=== PATIENT | female | born 1975 | race Caucasian/White ===

== ENCOUNTER → 2019-12-18 08:24 | Outpatient (CLI) | payer OTHER, SELFPAY ==
[2019-12-19 07:48] LABS: COVID19 Sendout Not Detected (Not Detect)
== END ==
PROVIDERS: Visit Provider Physician Assistant
DX: Z11.59 Encounter for screening for other viral diseases (principal)
CPT/HCPCS: 87635

== ENCOUNTER 2019-12-21 08:46 | Day surgery (SDC) | payer OTHER, SELFPAY ==
[2019-12-21] VITALS (7 sets, daily range): BP systolic 98–133; BP diastolic 62–84; PULSE 68–85; RESP 11–20; TEMP 36.3–37; O2SAT 95–100; BMI 25.2
[2019-12-21] MEDS: LACTATED RINGERS 1,000 ML 200 ML IV (09:12)
--- NOTE | 2019-12-21 09:28 | PM.HP.1 ---
History of Present Illness History of Present Illness Date Patient Seen: 12/21/19 Time Patient Seen: 09:29 Chief complaint: SDC Narrative: The patient is a woman who has been having intermittent bleeding for some time. It is getting worse however sometimes lasting over a day. It is a small amount of blood. She now has known hemorrhoids. She has no family history of colon cancer. Patient History Medical History Chicken pox (Resolved ~1983) Hemorrhoids (Acute 1989) Rectal bleeding (Acute 02/2019) Surgical History History of section (Resolved) Family & Social History Family History Grandfather Stroke Grandmother Cancer Social History: household members spouse Tobacco & Substance use: Smoking Status Never smoker alcohol intake current alcohol intake frequency holiday/special occasion Substance Use Type does not use Meds Home Medications and Allergies Home Medications Medication Instructions Recorded Confirmed Type evlpqhl-kopwqxjcdnaba-jvmngcmg 250 1 tab PO Q4-6H PRN 07/11/19 12/21/19 History mg-250 mg-65 mg tablet ibuprofen 800 mg tablet 800 mg PO DAILY PRN tab 07/11/19 12/21/19 History Allergies Allergy/AdvReac Type Severity Reaction Status Date / Time No Known Drug Allergies Allergy Verified 12/21/19 09:05 Review of Systems Review of Systems Narrative: History of thrombosed external hemorrhoids when ROS: Yes All systems reviewed with the patient and are negative except as otherwise documented Exam Vital Signs (past 8 hours): - 12/21/19 09:06 Temperature 98.6 F Pulse Rate 79 Respiratory Rate 16 Blood Pressure 133/84 Pulse Oximetry 100 Oxygen Delivery Method Room Air Narrative Exam Narrative: Pleasant cooperative patient no apparent distress. Lungs are clear to auscultation. No rales or rhonchi. Heart regular rate and rhythm no murmur gallop. Abdomen is soft nontender without mass. No obvious hernias. Patient is alert and oriented x3. Assessment & Plan Assessment & Plan narrative: The patient for a screening colonoscopy. I have discussed the procedure with them. Risks of bleeding, perforation which would necessitate major operation, failure to find remove all lesions, the potential tattoo were all discussed. All questions were answered. They wished to proceed. I also talked to her about possible hemorrhoid banding if I felt it would be beneficial. She is agreeable to proceed with that as well.
--- NOTE | 2019-12-21 09:33 | PM.PREOP ---
Pre-operative Note COVID-19 COVID-19 status: Negative Result date/Date tested (Pos, Neg/Pending): 12/18/19 Interval Note History & Physical reviewed/Exam performed by Physician: Yes Changes to H&P: No ASA Class (for procedural sedation): I
--- NOTE | 2019-12-21 10:11 | SUR.OPER ---
Two hemmorhoids banded
--- NOTE | 2019-12-21 10:11 | PM.OP.ENDO ---
Operative Date/Time/Diagnoses Date of procedure: 12/21/19 Time of procedure: 10:12 Pre-op diagnosis: Rectal bleeding Post-op diagnosis: same (Internal and external hemorrhoids) Procedure & Clinicians Study performed: Colonoscopy and 2 column hemorrhoidal banding Same procedure as scheduled: Yes Indications: Determine cause of rectal bleeding Surgeon: Jesse Beltran Procedure Notes SCOAP/Timeout: Performed Procedure in detail: The patient was placed in the left lateral decubitus position and underwent IV sedation directed by the surgeon consisting of fentanyl and Versed. Digital exam was remarkable for normal sphincter but no palpable mass but there were visible large external hemorrhoidal tags.. The scope was inserted and advanced through the rectum into the sigmoid, descending, transverse, and ascending colon. No lesions were seen. The cecum was reached identified by the ileocecal valve and the appendiceal opening. The ileocecal valve was briefly cannulated. The terminal ileum was normal in appearance. The scope was gradually brought out. No Polyps were found. The scope ultimately was retroflexed in the rectum. The appearance was remarkable for internal hemorrhoids.. The scope was removed and the patient tolerated the procedure well. The prep was excellent. Anoscope was inserted and a circumferential exam performed. I determined that 3 columns may benefit from banding. These were applied but too rapidly fell off they did not have good purchase and its I decided not to reapply them. Scope withdrawal time: Almost 8 minutes Sedation minutes: 35 Findings: internal hemorrhoids (And external hemorrhoids) Specimen(s): none sent Complications: none Post-procedure Recommendations: Colonscopy in 10 years Follow up: as needed Disposition: PACU
[2019-12-21] MEDS: MIDAZOLAM 5 MG/5 ML VIAL IV (10:12)
[2019-12-21] MEDS: fentaNYL 250 MCG/5 ML INJ 350 MCG IV (10:13)
--- NOTE | 2019-12-21 10:29 | SUR.PHASEI ---
Patient drowsy but arousable. Denies pain or nausea, no rectal bleeding noted. VSS.
--- NOTE | 2019-12-21 11:01 | SUR.PHASEII ---
Pt tearful, relieved that Dr didn't find anything serious. Stable and comfortable. No questions/concerns from patient or spouse.
== END 2019-12-21 11:03 | disposition home or self-care (01) ==
PROVIDERS: PCP Nurse Practitioner Family; Referring Provider Specialist; Visit Provider Specialist
PROC: 0DJD8ZZ Inspection of Lower Intestinal Tract, Via Natural or Artificial Opening Endoscopic (ICD-10-PCS; CPT 45378; principal; 2019-12-21 09:45)
DX: K64.4 Residual hemorrhoidal skin tags (principal); K64.8 Other hemorrhoids
CPT/HCPCS: 46221; 45378; 99152; 99153; J2250; J3010

== ENCOUNTER → 2020-02-27 07:48 | Outpatient (CLI) | payer OTHER, SELFPAY ==
[2020-02-27 09:07] LABS: Hematocrit 42.5 % (36-46); Hemoglobin 14.4 g/dL (12.0-16.0); Mean Corpuscular HGB Conc 33.9 % (30-36); Mean Corpuscular Hemoglobin 33.1 PG (26-34); Mean Corpuscular Volume 97.7 fL (80-100); Platelet Count 222 X10^3/uL (150-400); Red Blood Cell Count 4.35 X10^6/uL (4.0-5.2); White Blood Cell Count 4.4 X10^3/uL (4.5-11.0)
[2020-02-27 09:14] LABS: Alanine Aminotransferase 21 IU/L (<35); Albumin 4.3 g/dL (3.5-5.0); Albumin Globulin Ratio 1.6 (1.0-2.8); Alkaline Phosphatase 48 U/L (38-126); Aspartate Aminotransferase 30 IU/L (14-36); BUN Creatinine Ratio 22.9 (6-22); Bilirubin Total 1.1 mg/dL (0.2-1.3); Blood Urea Nitrogen 19 mg/dL (7-17); Calcium 8.5 mg/dL (8.4-10.2); Carbon Dioxide 30 mmol/L (22-32); Chloride 103 mmol/L (98-107); Estimated Glomerular Filt Rate > 60.0 mL/min (>60); Globulin 2.7 g/dL (1.7-4.1); Glucose 81 mg/dL (70-100); HEMOLYSIS < 15 (0-50); Potassium 3.9 mmol/L (3.4-5.1); Sodium 137 mmol/L (137-145)
[2020-02-27 09:49] LABS: TSH w/ Reflex to FT4 1.83 uIU/mL (0.47-4.68)
== END ==
PROVIDERS: PCP Nurse Practitioner Family; Referring Provider Nurse Practitioner Family; Visit Provider Nurse Practitioner Family
DX: Z00.00 Encounter for general adult medical examination without abnormal findings (principal); F32.9 Major depressive disorder, single episode, unspecified; F41.9 Anxiety disorder, unspecified; H54.7 Unspecified visual loss; R00.2 Palpitations
CPT/HCPCS: 36415; 80053; 84443; 85027

== ENCOUNTER → 2020-02-28 15:10 | Outpatient (CLI) | payer OTHER, SELFPAY ==
--- NOTE | 2020-03-26 07:52 | P.HOLT.S_ITS ---
[employer] Report Referral & Results Date Patient Seen: 02/28/20 Requesting provider: Ruma Haque Indication: Palpitations Duration of monitoring (days): 13 Diary information: There were 2 patient triggered events and 2 patient diary entries The patient triggered events were associated with (within 45 seconds) variably sinus rhythm, PVCs, and a run of nonsustained ventricular tachycardia Patient diary event was associated with sinus rhythm alone Data: Minimum heart rate identified was 52 beats per minute at 05:34 on 03/03/2020 Maximum heart rate was 180 beats per minute at 10:37 on 03/11/2020 Less than 1% of identified beats or either ventricular supraventricular ectopic in origin there were 2 runs of nonsustained ventricular tachycardia with the fastest being 5 beats at a rate of 139 beats per minute and the longest being 11 beats at a rate of 167 beats per minute Impression: This study demonstrates rare PVCs and PACs. There also to runs of nonsustained ventricular tachycardia Difficult to identify clear correlation between reported symptoms of palpit ations any specific dysrhythmia. Patient actually had very very few PVCs and PACs and the 2 runs of VT as above
== END ==
PROVIDERS: PCP Nurse Practitioner Family; Referring Provider Nurse Practitioner Family; Visit Provider Nurse Practitioner Family
DX: R00.2 Palpitations (principal); H54.7 Unspecified visual loss
CPT/HCPCS: 0296T; 0298T

== ENCOUNTER → 2020-03-18 09:18 | Outpatient (CLI) | payer OTHER, SELFPAY ==
--- NOTE | 2020-03-18 09:19 | DI.ECHO.S_ITS ---
[facility] +---------+ : : [address] [place] [address] : : : : [id number] : : : : Phone: [phone]+ Echocardiogram Report + + :Name: IDALIA DENNIS Study Date: 03/18/2020 Height: 62 in : :[facility] Weight: 140 lb : : Gender: Female BSA: 1.6 m2 : :: 1975 Age: 45 yrs BP: 125/88 mmHg: :Reason For Study: PALPITATIONS : :Ordering Physician: FRANCIS, : :RICCO Performed By: Chen Banuelos : :Referring: RICCO WESTBROOK : + + Interpretation Summary Normal both left and right ventricle size and function. The ejection fraction is 55-60%. Normal both atria. No significant valvular abnormality. Procedure: A two-dimensional transthoracic echocardiogram with color flow and Doppler was performed. The study quality was technically adequate. There is no prior echocardiogram noted for this patient. Left Ventricle: The left ventricle is normal in size and wall thickness. The ejection fraction is estimated to be 55-60%. There are no focal wall motion abnormalities. Diastolic parameters suggest probable normal left ventricular diastolic function and normal filling pressures. Right Ventricle: The right ventricle is normal in size and function. Atria: Both atria are normal in size. There is no Doppler evidence for an interatrial shunt. Mitral Valve: The mitral valve is normal in structure and function. There is trace mitral regurgitation. Aortic Valve: The aortic valve is trileaflet. The aortic valve opens well. There is no aortic valve stenosis. There is trace aortic regurgitation. Tricuspid Valve: The tricuspid valve is normal in structure and function. There is mild tricuspid regurgitation. The right ventricular systolic pressure is estimated to be at least 24 mmHg based on an estimated right atrial pressure of 3 mm Hg. Pulmonic Valve: The pulmonic valve leaflets are thin and pliable; valve motion is normal. There is no pulmonic valvular regurgitation. Great Vessels: The aortic root is normal size. The dimensions of the ascending aorta are normal. The IVC is of normal diameter and collapses greater than 50% with a sniff. This suggests a low right atrial pressure of 3 mm Hg. Pericardium/ Pleura There is no pericardial effusion. There is no pleural effusion. MMode/2D Measurements & Calculations LVIDd: 4.3 cm LVOT diam: 2.0 cm LVIDs: 3.1 cm Ao root diam: 3.1 cm FS: 28.7 % asc Aorta Diam: 3.1 cm EPSS: 0.59 cm Ao Arch Diam (Prox Trans): 2.5 cm IVSd: 0.81 cm LVPWd: 0.69 cm LV armendariz. diameter/BSA (cm/m^2): 2.6 LV sys. diameter/BSA (cm/m^2): 1.9 LA A2 area: 18.0 cm2 RA long axis: 4.6 cm LA A4 area: 15.2 cm2 RA area: 13.7 cm2 LA length (vol): 4.5 cm RA vol: 35.1 ml LA vol: 51.7 ml RA : 21.4 ml/m2 LA vol index: 31.4 ml/m2 IVC diam: 1.4 cm RVD1 (basal): 3.2 cm TAPSE: 2.0 cm Doppler Measurements & Calculations Ao V2 max: 118.4 cm/sec LVOT Max Raúl: 93.5 cm/sec Ao V2 mean: 83.1 cm/sec LV V1 max P.5 mmHg Ao max P.6 mmHg LV V1 VTI: 19.9 cm Ao mean P.0 mmHg NEETU(I,D): 2.3 cm2 Ao V2 VTI: 26.3 cm NEETU(V,D): 2.4 cm2 sev ratio: 0.76 NEETU indexed to BSA (cm^2/m^2): 1.4 AI P1/2t: 560.1 msec AI dec slope: 164.8 cm/sec2 MV E max raúl: 69.3 cm/sec TR max raúl: 209.7 cm/sec MV A max raúl: 59.0 cm/sec TR max P.3 mmHg MV E/A: 1.2 PA V2 max: 47.5 cm/sec Med Peak E' Raúl: 11.6 cm/sec PA V2 mean: 33.6 cm/sec E/E' med: 6.0 PA mean P.52 mmHg Lat Peak E' Raúl: 14.9 cm/sec PA pr(Accel): 0.22 mmHg E/E' lat: 4.6 E/e' average: 5.3 MV dec time: 0.18 sec SV(LVOT): 60.0 ml Electronically signed by: Lamonte Mckeon on Reading Physician:03/18/2020 11:23 AM
== END ==
PROVIDERS: PCP Nurse Practitioner Family; Referring Provider Nurse Practitioner Family; Visit Provider Nurse Practitioner Family
DX: I07.1 Rheumatic tricuspid insufficiency (principal); R00.2 Palpitations; H54.7 Unspecified visual loss
CPT/HCPCS: 93306

== ENCOUNTER → 2020-03-20 08:35 | Outpatient (CLI) | payer OTHER, SELFPAY ==
[2020-03-20 10:01] LABS: Cholesterol 154 mg/dL (140-199); HDL Cholesterol 98 mg/dL (40-60); LDL Cholesterol Calculated 48 mg/dL (<100); Triglycerides 39 mg/dL (35-150)
== END ==
PROVIDERS: PCP Nurse Practitioner Family; Referring Provider Nurse Practitioner Family; Visit Provider Nurse Practitioner Family
DX: Z13.6 Encounter for screening for cardiovascular disorders (principal)
CPT/HCPCS: 36415; 80061

== ENCOUNTER 2020-03-31 13:35 | Emergency (ER) | payer OTHER, SELFPAY ==
[2020-03-31] VITALS (7 sets, daily range): BP systolic 114–160; BP diastolic 71–93; PULSE 67–92; RESP 18–36; TEMP 37.3; O2SAT 96–99; BMI 25.6
--- NOTE | 2020-03-31 13:55 | DI.RAD.S_ITS ---
PROCEDURE: XR CHEST 1V INDICATIONS: chest pain TECHNIQUE: One view of the chest was acquired. COMPARISON: None. FINDINGS: Surgical changes and devices: None. Lungs and pleura: Lungs are clear. No pleural effusions or pneumothorax. Mediastinum: Mediastinal contours appear normal. Heart size is normal. Bones and chest wall: No suspicious bony lesions. Overlying soft tissues appear unremarkable. IMPRESSION: No acute cardiopulmonary abnormality Dictated by: Bello Naranjo M.D. on 03/31/2020 at 14:27 Approved by: Bello Naranjo M.D. on 03/31/2020 at 14:28
[2020-03-31 14:12] LABS: Add Manual Diff / Slide Review NO; Alanine Aminotransferase 23 IU/L (<35); Albumin 4.5 g/dL (3.5-5.0); Albumin Globulin Ratio 1.6 (1.0-2.8); Alkaline Phosphatase 59 U/L (38-126); Aspartate Aminotransferase 33 IU/L (14-36); BUN Creatinine Ratio 16.9 (6-22); Basophils Absolute Auto 0 /uL (0-100); Basophils Percent Auto 0.5 % (0-2); Bilirubin Total 1.1 mg/dL (0.2-1.3); Blood Urea Nitrogen 14 mg/dL (7-17); Calcium 8.9 mg/dL (8.4-10.2); Carbon Dioxide 30 mmol/L (22-32); Chloride 105 mmol/L (98-107); Creatine Kinase 63 U/L (30-135); Eosinophils Absolute Auto 100 /uL (0-450); Eosinophils Percent Auto 1.1 % (2-4); Estimated Glomerular Filt Rate > 60.0 mL/min (>60); Globulin 2.9 g/dL (1.7-4.1); Glucose 99 mg/dL (70-100); HEMOLYSIS 16 (0-50); Hematocrit 45.1 % (36-46); Hemoglobin 15.1 g/dL (12.0-16.0); Lipase 118 U/L (23-300); Lymphocytes Absolute Auto 1200 /uL (1100-4500); Mean Corpuscular HGB Conc 33.4 % (30-36); Mean Corpuscular Hemoglobin 32.8 PG (26-34); Mean Corpuscular Volume 98.3 fL (80-100); Monocytes Absolute Auto 400 /uL (0-900); Monocytes Percent Auto 8.7 % (3-14); Neutrophils Absolute Auto 3200 /uL (1500-7000); Neutrophils Percent Auto 65.7 % (50-75); Platelet Count 249 X10^3/uL (150-400); Red Blood Cell Count 4.59 X10^6/uL (4.0-5.2); Red Cell Distribution Width 13.6 % (11.6-14.8); Sodium 137 mmol/L (137-145); Total Protein 7.4 g/dL (6.3-8.2); White Blood Cell Count 4.9 X10^3/uL (4.5-11.0)
--- NOTE | 2020-03-31 14:15 | ED_ITS ---
HPI - Chest Pain General Chief Complaint: Chest Pain Stated Complaint: chest pressure, jittery, SOB for a few days Time Seen by Provider: 03/31/20 14:15 Source: patient and family Mode of arrival: Family Vehicle Limitations: no limitations History of Present Illness HPI narrative: This is a 45-year-old female who comes to the emergency department with a complaint of 3 days of chest pressure type sensation she desc ribes as feeling like she needs to take a deep breath she states that it feels worse when she lays flat. It makes her feel restless than sort of uncomfortable. She states it does not really make her feel short of breath and when she ambulates it feels less so. No fevers, no chills, no cold cough or congestion. No nausea or vomiting no other GI or urinary symptoms. No swelling in her extremities. No diaphoresis or sweats. She has had issues with a racing kind jittery sensation or fluttering in her chest in the past and was told she had some sort of ventricular arrhythmia on a ziopatch and has follow-up set up in April with Dr. Nino with Cardiology. She states she had an echo in the last month which was ?good?. She takes Lexapro which she started 2 months ago. She denies any other medical issues. No allergies. Alcohol 2-4 drinks weekly, no illicit. Grandfather of recurrent strokes in his 50s but she denies any other cardiac, pulmonary her embolic history in her family. Related Data Home Medications Medication Instructions Recorded Confirmed nddxslf-hqbltuabiqjmf-qiucvyxd 250 1 tab PO Q4-6H PRN 07/11/19 03/20/20 mg-250 mg-65 mg tablet ibuprofen 800 mg tablet 800 mg PO DAILY PRN tab 07/11/19 03/20/20 Previous Rx's Medication Instructions Recorded escitalopram oxalate 10 mg tablet 10 mg PO DAILY #90 tab 03/20/20 Allergies Allergy/AdvReac Type Severity Reaction Status Date / Time No Known Drug Allergies Allergy Verified 03/20/20 09:36 Review of Systems Review of Systems ROS Unobtainable: All systems reviewed & are unremarkable except as noted in HPI and below Patient History Medical History Abnormal patient-activated cardiac event monitor Anxiety Chicken pox (~1983) Depression Hemorrhoids (1989) Palpitations Partial blindness Rectal bleeding (02/2019) Surgical History History of section Family History Grandfather Stroke Grandmother Cancer Social History household members: spouse Smoking Status: Never smoker second hand exposure: No alcohol intake: current (a glass of wine 3x/week) substance use type: does not use Smoking Status: Never smoker alcohol intake frequency: holidays/special occasions only Substance Use Type: does not use Exam Narrative Exam Narrative: GENERAL: Alert and oriented x three, well-nourished, well- appearing female in mild distress HEENT: Head normocephalic, atraumatic, EOMI, pupils reactive, face symmetric, moist mucous membranes NECK: Supple, full range of motion CARDIOVASCULAR: Regular rate and rhythm without murmurs, rubs or gallops. No JVD. 2+ pulses bilaterally. RESPIRATORY: Breath sounds equal bilaterally, no wheezes rales or rhonchi. Tachypnea or accessory muscle use. ABDOMEN: Soft, nontender. Normoactive bowel sounds all 4 quadrants. No guarding or rebound, rigidity, no mass : No CVA tenderness EXTREMITIES: Normal range of motion, no clubbing or edema. Neurovascularly intact. NEUROLOGICAL: Cranial nerves II through XII grossly intact. Moving all extremities SKIN: Warm, dry, no petechiae, no rashes or lesions. Initial Vital Signs Initial Vital Signs: Vital Signs Pulse Rate 87 03/31/20 13:47 Respiratory Rate 25 H 03/31/20 13:47 Blood Pressure 160/93 H 03/31/20 13:47 Pulse Oximetry 98 03/31/20 13:47 Scores HEART Score Heart Score history: Slightly Suspicious Heart Score EKG: Non-Specific repolarization disturbance Heart Score Age: 45-64 years old Heart Score risk factors: No known risk factors Heart Score troponin: < or = to normal limit Heart Score Total: 2 PERC Score Age greater than or equal to 50 years: No Heart rate greater than or equal to 100 bpm: No Room Air O2 Sat less than 95%: No Unilateral leg swelling: No Recent trauma or surgery: No Hemoptysis: No Prior PE or DVT: No Hormone Use: No Total PERC Score: 0 Course Orders Ordered: ED Orders 03/31/20 10:37 COVID19 Stat 03/31/20 13:50 Complete Blood Count AUTO DIFF Stat Comprehensive Metabolic Panel Stat Lipase Stat Magnesium Stat Partial Thromboplastin Time Stat Prothrombin Time INR Stat Troponin & CK Cardiac Panel Stat 03/31/20 13:55 XR chest 1V Stat EKG-12 Lead Stat Consultations Time: 14:48 Vital Signs Vital signs: Vital Signs - 8 hr 03/31/20 13:47 03/31/20 13:51 03/31/20 14:00 Temperature 99.1 F Pulse Rate 87 92 H 78 Respiratory Rate 25 H 18 36 H Blood Pressure 160/93 H 160/93 H Pulse Oximetry 98 99 98 03/31/20 14:01 03/31/20 14:30 03/31/20 15:00 Temperature Pulse Rate 74 70 67 Respiratory Rate 31 H 22 Blood Pressure 137/73 115/72 120/72 Pulse Oximetry 98 98 97 03/31/20 15:30 Temperature Pulse Rate 67 Respiratory Rate 18 Blood Pressure 114/71 Pulse Oximetry 96 MDM - Chest Pain Lab Data Attestation: I reviewed the patient's lab results. Result diagrams: 03/31/20 13:50 03/31/20 13:50 Labs: Lab Results 03/31/20 03/31/20 03/31/20 Range/Units 10:37 13:50 13:50 WBC 4.9 (4.5-11.0) X10^3/uL RBC 4.59 (4.0-5.2) X10^6/uL Hgb 15.1 (12.0-16.0) g/dL Hct 45.1 (36-46) % MCV 98.3 (80-100) fL MCH 32.8 (26-34) PG MCHC 33.4 (30-36) % RDW 13.6 (11.6-14.8) % Plt Count 249 (150-400) X10^3/uL Neut % (Auto) 65.7 (50-75) % Lymph % (Auto) 24.0 L (25-40) % [place] % (Auto) 8.7 (3-14) % Eos % (Auto) 1.1 L (2-4) % Baso % (Auto) 0.5 (0-2) % Neut # (Auto) 3200 (8383-1046) /uL Lymph # (Auto) 1200 (6130-5586) /uL [place] # (Auto) 400 (0-900) /uL Eos # (Auto) 100 (0-450) /uL Baso # (Auto) 0 (0-100) /uL PT 11.2 (10.1-12.7) SECONDS INR 1.0 (0.9-1.3) APTT 34 (26.4-36.2) SECONDS Sodium (137-145) mmol/L Potassium (3.4-5.1) mmol/L Chloride (98-107) mmol/L Carbon Dioxide (22-32) mmol/L BUN (7-17) mg/dL Creatinine (0.52-1.04) mg/dL Estimated GFR (>60) mL/min BUN/Creatinine Ratio (6-22) Glucose (70-100) mg/dL Calcium (8.4-10.2) mg/dL Magnesium (1.6-2.3) mg/dL Total Bilirubin (0.2-1.3) mg/dL AST (14-36) IU/L ALT (<35) IU/L Alkaline Phosphatase (38-126) U/L Total Creatine Kinase (30-135) U/L CK-MB (CK-2) CK-MB (CK-2) Rel Index Troponin I (0.01-0.034) ng/mL Total Protein (6.3-8.2) g/dL Albumin (3.5-5.0) g/dL Globulin (1.7-4.1) g/dL Albumin/Globulin Ratio (1.0-2.8) Lipase (23-300) U/L COVID-19 PCR Negative (Negative) 03/31/20 03/31/20 Range/Units 13:50 13:50 WBC (4.5-11.0) X10^3/uL RBC (4.0-5.2) X10^6/uL Hgb (12.0-16.0) g/dL Hct (36-46) % MCV (80-100) fL MCH (26-34) PG MCHC (30-36) % RDW (11.6-14.8) % Plt Count (150-400) X10^3/uL Neut % (Auto) (50-75) % Lymph % (Auto) (25-40) % [place] % (Auto) (3-14) % Eos % (Auto) (2-4) % Baso % (Auto) (0-2) % Neut # (Auto) (6738-1358) /uL Lymph # (Auto) (0021-6482) /uL [place] # (Auto) (0-900) /uL Eos # (Auto) (0-450) /uL Baso # (Auto) (0-100) /uL PT (10.1-12.7) SECONDS INR (0.9-1.3) APTT (26.4-36.2) SECONDS Sodium 137 (137-145) mmol/L Potassium 4.0 (3.4-5.1) mmol/L Chloride 105 (98-107) mmol/L Carbon Dioxide 30 (22-32) mmol/L BUN 14 (7-17) mg/dL Creatinine 0.83 (0.52-1.04) mg/dL Estimated GFR > 60.0 (>60) mL/min BUN/Creatinine Ratio 16.9 (6-22) Glucose 99 (70-100) mg/dL Calcium 8.9 (8.4-10.2) mg/dL Magnesium 2.3 (1.6-2.3) mg/dL Total Bilirubin 1.1 (0.2-1.3) mg/dL AST 33 (14-36) IU/L ALT 23 (<35) IU/L Alkaline Phosphatase 59 (38-126) U/L Total Creatine Kinase 63 (30-135) U/L CK-MB (CK-2) TNP CK-MB (CK-2) Rel Index TNP Troponin I < 0.012 (0.01-0.034) ng/mL Total Protein 7.4 (6.3-8.2) g/dL Albumin 4.5 (3.5-5.0) g/dL Globulin 2.9 (1.7-4.1) g/dL Albumin/Globulin Ratio 1.6 (1.0-2.8) Lipase 118 (23-300) U/L COVID-19 PCR (Negative) Imaging Data Chest x-ray: Radiologist's Impression: [address] [id number] ReportSigned Patient: Yennifer Díaz [facility]#: [id number]: 1975Acct:[id number]/Sex: 45 / FDate of Service: 03/31/20Loc: EDAccession Number: [id number] Procedure: XR chest 1V Ordering Provider: Gail Patel D.O. PROCEDURE: XR CHEST 1V INDICATIONS: chest pain TECHNIQUE: One view of the chest was acquired. COMPARISON: None. FINDINGS: Surgical changes and devices: None. Lungs and pleura: Lungs are clear. No pleural effusions or pneumothorax. Mediastinum: Mediastinal contours appear normal. Heart size is normal. Bones and chest wall: No suspicious bony lesions. Overlying soft tissues appear unremarkable. IMPRESSION: No acute cardiopulmonary abnormality Dictated by: Bello Naranjo M.D. on 03/31/2020 at 14:27 Approved by: Bello Naranjo M.D. on 03/31/2020 at 14:28 ECG Data Attestation: I personally reviewed and interpreted this ECG as follows: Prior ECG tracings: not available for review Interpretation: Normal sinus rhythm no acute ST elevation or depression. Rate is 80, IA 128, QRS 84 and QTC of 442. MDM Narrative Medical decision making narrative: Patient comes in with atypical chest pain has present for 3 days which is worse with lying flat. Patient has negative chest x -ray, no acute changes on her lab work, no EKG changes and negative coronavirus testing. Discussed with patient she did have some sort of changes on her ZIO patch but she is set up for follow-up, I was unable to obtain the actual report. Patient is low risk from cardiac event standpoint, no dysrhythmias in the department. Plan for patient to follow-up with cardiology and in the short term with her primary care. Discharge Plan Departure Patient Disposition: Home Clinical Impression: Atypical chest pain Instructions: DI for Atypical Chest Pain Activity Restrictions/Additional Instructions: Follow-up with your physician this for recheck. Also follow-up with cardiology for your appointment in April. You may continue home medications as prescribed. Return to the ER for fevers, new or worsening chest pain, shortness of breath, lightheadedness or passing out, persistent vomiting, black or bloody stools or other new or concerning symptoms. Prescriptions: No Action ibuprofen 800 mg tablet 800 mg PO DAILY PRN (Reason: Pain (Scale Score 1-3)) RF: 0 Excedrin Migraine 250-250-65 mg tablet 1 tab PO Q4-6H PRN (Reason: Pain (Scale Score 1-3)) RF: 0 escitalopram oxalate 10 mg tablet 10 mg PO DAILY Qty: 90 RF: 3 Referrals: Ruma Haque ARNP [Primary Care Provider] -
[2020-03-31 14:24] LABS: Troponin I < 0.012 ng/mL (0.01-0.034)
[2020-03-31 14:33] LABS: Prothrombin Time 11.2 SECONDS (10.1-12.7)
[2020-03-31 14:35] LABS: PTT Partial Thromboplastin Tim 34 SECONDS (26.4-36.2)
[2020-03-31 14:56] LABS: Magnesium 2.3 mg/dL (1.6-2.3)
[2020-03-31 15:49] LABS: COVID19 -Nasal RAPID Negative (Negative)
== END 2020-03-31 16:07 | disposition home or self-care (01) ==
PROVIDERS: Emergency Provider Emergency Medicine; PCP Nurse Practitioner Family
DX: R07.89 Other chest pain (principal)
CPT/HCPCS: 36415; 71045; 80053; 82550; 83690; 83735; 84484; 85025; 85610; 85730; 87635; 93005; 93010; 99283; 99284

== ENCOUNTER → 2020-04-05 10:04 | Outpatient (CLI) | payer OTHER, SELFPAY ==
--- NOTE | 2020-04-05 10:06 | DI.MG.S_ITS ---
BILATERAL DIGITAL SCREENING MAMMOGRAM 3D/2D WITH CAD: 04/05/2020 CLINICAL: Routine screening. Comparison is made to exams dated: 07/01/2016 mammogram and 04/04/2018 mammogram - [facility]. The tissue of both breasts is heterogeneously dense. This may lower the sensitivity of mammography. Current study was also evaluated with a Computer Aided Detection (CAD) system. No significant masses, calcifications, or other findings are seen in either breast. There has been no significant interval change. IMPRESSION: NEGATIVE There is no mammographic evidence of malignancy. A 1 year screening mammogram is recommended. This exam was interpreted at Station ID: [id number]. NOTE: For mammograms, a report in lay terms will be sent to the patient. Approximately 15% of breast malignancies will not be visualized mammographically. In the management of a palpable breast mass, a negative mammogram must not discourage biopsy of a clinically suspicious lesion. Electronically Signed By: Kye moreira/fernando:04/05/2020 10:45:53 letter sent: Normal Exam ACR BI-RADS Category 1: Negative [id number]
== END ==
PROVIDERS: PCP Nurse Practitioner Family; Referring Provider Nurse Practitioner Family; Visit Provider Nurse Practitioner Family
DX: Z12.31 Encounter for screening mammogram for malignant neoplasm of breast (principal)
CPT/HCPCS: 77063; 77067

== ENCOUNTER → 2020-08-08 15:06 | Outpatient (CLI) | payer OTHER, SELFPAY ==
[2020-08-08] MEDS: COVID-19 VACC #1, MRNA(MOD) 100 MCG/0.5 ML VIAL IM (15:15)
== END ==
PROVIDERS: PCP Nurse Practitioner Family; Visit Provider Internal Medicine
DX: Z23 Encounter for immunization (principal)
CPT/HCPCS: 0011A; 91301

== ENCOUNTER → 2020-09-05 15:03 | Outpatient (CLI) | payer OTHER, SELFPAY ==
[2020-09-05] MEDS: COVID-19 VACC #2, MRNA(MOD) 100 MCG/0.5 ML VIAL IM (15:04)
== END ==
PROVIDERS: PCP Nurse Practitioner Family; Visit Provider Internal Medicine
DX: Z23 Encounter for immunization (principal)
CPT/HCPCS: 0012A; 91301

== ENCOUNTER → 2021-04-26 14:30 | Outpatient (CLI) | payer OTHER, SELFPAY ==
--- NOTE | 2021-04-26 14:30 | DI.MG.S_ITS ---
BILATERAL DIGITAL SCREENING MAMMOGRAM 3D/2D WITH CAD: 04/26/2021 CLINICAL: Routine screening. Comparison is made to exams dated: 04/05/2020 mammogram - [facility], 04/04/2018 mammogram, and 07/01/2016 mammogram - [facility]. There are scattered fibroglandular elements in both breasts. Current study was also evaluated with a Computer Aided Detection (CAD) system. There is a 0.6 cm oval equal density asymmetry in the right breast middle depth central to the nipple seen on the craniocaudal view only. This is more prominent. No other significant masses, calcifications, or other findings are seen in either breast. IMPRESSION: INCOMPLETE: NEEDS ADDITIONAL IMAGING EVALUATION The 0.6 cm oval equal density asymmetry in the right breast is indeterminate. Additional views with possible ultrasound are recommended. This exam was interpreted at Station ID: [id number]. NOTE: For mammograms, a report in lay terms will be sent to the patient. Approximately 15% of breast malignancies will not be visualized mammographically. In the management of a palpable breast mass, a negative mammogram must not discourage biopsy of a clinically suspicious lesion. Electronically Signed By: Josias robbins/fernando:04/28/2021 08:34:10 letter sent: Additional Imaging Needed ACR BI-RADS Category 0: Incomplete [id number]
== END ==
PROVIDERS: PCP Nurse Practitioner Family; Referring Provider Nurse Practitioner Family; Visit Provider Nurse Practitioner Family
DX: Z12.31 Encounter for screening mammogram for malignant neoplasm of breast (principal)
CPT/HCPCS: 77063; 77067

== ENCOUNTER → 2021-05-22 08:42 | Outpatient (CLI) | payer OTHER, SELFPAY ==
--- NOTE | 2021-05-22 | DI.MG.S_ITS ---
UNILATERAL RIGHT DIGITAL DIAGNOSTIC MAMMOGRAM 3D/2D WITH ADDITIONAL VIEWS: 05/22/2021 CLINICAL: Additional evaluation requested from prior study. Comparison is made to exams dated: 04/26/2021 mammogram, 04/05/2020 mammogram - [facility], and 04/04/2018 mammogram - [facility]. There are scattered fibroglandular elements in right breast. There is an oval equal density focal asymmetry with an obscured, indistinct, and circumscribed margin in the right breast at 8 o'clock anterior depth. No other significant masses or calcifications are seen in the breast. IMPRESSION: INCOMPLETE: NEEDS ADDITIONAL IMAGING EVALUATION The oval equal density focal asymmetry in the right breast is indeterminate. An ultrasound is recommended. Ultrasound will be performed immediately following the current exam. This exam was interpreted at Station ID: [id number]. NOTE: For mammograms, a report in lay terms will be sent to the patient. Approximately 15% of breast malignancies will not be visualized mammographically. In the management of a palpable breast mass, a negative mammogram must not discourage biopsy of a clinically suspicious lesion. Electronically Signed By: Daniel Alanis M.D. ddp/:05/22/2021 09:19:38 ACR BI-RADS Category 0: Incomplete 3340F
--- NOTE | 2021-05-22 08:43 | DI.US.S_ITS ---
LIMITED ULTRASOUND OF RIGHT BREAST: 05/22/2021 CLINICAL: Patient returns today to evaluate a focal asymmetry in the right breast. Comparison is made to exams dated: 05/22/2021 mammogram, 04/26/2021 mammogram, and 04/05/2020 mammogram - [facility]. Real-time and Doppler ultrasound of the right breast 8 o'clock region were performed on the areas of interest. There is a 0.7 cm x 0.3 cm x 0.7 cm cluster of oval cysts with a septated internal wall in the right breast at 8 o'clock middle depth 4 cm from the nipple. This cluster of oval cysts is hypoechoic with a well-defined boundary, internal echoes, and posterior acoustic enhancement. This correlates with mammography findings. Color flow imaging demonstrates that there is no vascularity present. IMPRESSION: PROBABLY BENIGN The 0.7 cm x 0.3 cm x 0.7 cm oval cluster of cysts in the right breast is probably benign. A follow-up ultrasound in 6 months is recommended. A follow-up ultrasound in 6 months is recommended to demonstrate stability. This exam was interpreted at Station ID: [id number]. Electronically Signed By: Daniel barakat/:05/22/2021 10:20:15 letter sent: Followup Recommended Ultrasound BI-RADS: 3 Probably benign
== END ==
PROVIDERS: PCP Nurse Practitioner Family; Referring Provider Nurse Practitioner Family; Visit Provider Nurse Practitioner Family
DX: R92.8 Other abnormal and inconclusive findings on diagnostic imaging of breast (principal); N60.01 Solitary cyst of right breast
CPT/HCPCS: 76642; 77065; G0279

== ENCOUNTER → 2021-05-28 09:21 | Outpatient (CLI) | payer OTHER, SELFPAY ==
--- NOTE | 2021-05-28 09:22 | DI.US.S_ITS ---
PROCEDURE: US CAROTID DOPPLER BI INDICATIONS: intermittent blindness TECHNIQUE: Color and pulse Doppler interrogation was performed of both carotid systems, with image documentation and velocity measurements. COMPARISON: [facility], MR, MR HEAD/BRAIN WO CON, 05/28/2021, 9:31. FINDINGS: Stenosis calculations are based on SRU (Society of Radiologists in Ultrasound) criteria. The flow velocities and the arterial waveforms are normal within both carotid arterial systems. The estimated degree of internal carotid artery stenosis is less than 50%. Note is made that the right internal carotid artery is tortuous distally. Antegrade flow is confirmed within both vertebral arteries. IMPRESSION: No hemodynamically significant stenosis is seen. Dictated by: Damián Corona M.D. on 05/28/2021 at 11:02 Approved by: Damián Corona M.D. on 05/28/2021 at 11:03
--- NOTE | 2021-05-28 09:22 | DI.MRI.S_ITS ---
PROCEDURE: MR HEAD/BRAIN WO CON INDICATIONS: intermittent blindness left eye TECHNIQUE: Noncontrast axial T1 spin echo, axial T2 fast spin echo, sagittal and axial FLAIR, coronal T2 fast spin echo, axial gradient echo, axial diffusion and ADC through the brain. Coronal STIR and axial fat saturated T1 sequences through the orbits are obtained. COMPARISON: None. FINDINGS: Image quality: Excellent. CSF Spaces: Basal cisterns are patent. No extra-axial fluid collections. Ventricles are normal in size and shape. Brain: No intracranial masses or hemorrhage. Naik/white matter interface is normal. Brainstem appears normal. Diffusion-weighted images demonstrate no acute ischemic insult. No chronic ischemic insults. Normal intravascular flow voids are present. Skull and face: Calvarium has normal marrow signal. Orbits appear normal. Sinuses: Small left inferior maxillary sinus retention cyst. Sinuses and mastoids are otherwise clear. IMPRESSION: 1. No acute process. 2. No explanation for intermittent blindness. 3. No recent infarct. Dictated by: Yanet Bautista M.D. on 05/28/2021 at 11:17 Approved by: Yanet Bautista M.D. on 05/28/2021 at 11:18
== END ==
PROVIDERS: PCP Nurse Practitioner Family; Referring Provider Nurse Practitioner Family; Visit Provider Nurse Practitioner Family
DX: H54.7 Unspecified visual loss (principal)
CPT/HCPCS: 70551; 93880

== ENCOUNTER → 2021-07-08 08:10 | Outpatient (CLI) | payer OTHER, SELFPAY ==
[2021-07-08 09:44] LABS: Add Manual Diff / Slide Review NO; Basophils Absolute Auto 0 /uL (0-100); Basophils Percent Auto 0.7 % (0-2); Eosinophils Absolute Auto 200 /uL (0-450); Eosinophils Percent Auto 3.6 % (2-4); Lymphocytes Absolute Auto 1200 /uL (1100-4500); Lymphocytes Percent Auto 28.6 % (25-40); Mean Corpuscular HGB Conc 33.2 % (30-36); Mean Corpuscular Hemoglobin 31.8 PG (26-34); Mean Corpuscular Volume 95.7 fL (80-100); Monocytes Absolute Auto 300 /uL (0-900); Monocytes Percent Auto 7.4 % (3-14); Neutrophils Absolute Auto 2500 /uL (1500-7000); Neutrophils Percent Auto 59.7 % (50-75); Platelet Count 253 X10^3/uL (150-400); Red Blood Cell Count 4.39 X10^6/uL (4.0-5.2); Red Cell Distribution Width 13.3 % (11.6-14.8); White Blood Cell Count 4.2 X10^3/uL (4.5-11.0)
[2021-07-08 10:03] LABS: Alanine Aminotransferase 31 IU/L (<35); Albumin 4.4 g/dL (3.5-5.0); Albumin Globulin Ratio 1.7 (1.0-2.8); Alkaline Phosphatase 52 U/L (38-126); Aspartate Aminotransferase 33 IU/L (14-36); BUN Creatinine Ratio 23.8 (6-22); Bilirubin Total 0.6 mg/dL (0.2-1.3); Blood Urea Nitrogen 19 mg/dL (7-17); Calcium 8.8 mg/dL (8.4-10.2); Carbon Dioxide 29 mmol/L (22-32); Chloride 104 mmol/L (98-107); Estimated Glomerular Filt Rate > 60.0 mL/min (>60); Globulin 2.6 g/dL (1.7-4.1); Glucose 84 mg/dL (70-100); HEMOLYSIS < 15 (0-50); Potassium 4.3 mmol/L (3.4-5.1); Sodium 139 mmol/L (137-145)
== END ==
PROVIDERS: PCP Nurse Practitioner Family; Referring Provider Nurse Practitioner Family; Visit Provider Nurse Practitioner Family
DX: H54.7 Unspecified visual loss (principal); Z00.00 Encounter for general adult medical examination without abnormal findings
CPT/HCPCS: 36415; 80053; 84443; 85025

== ENCOUNTER → 2021-11-25 14:51 | Outpatient (CLI) | payer OTHER, SELFPAY ==
--- NOTE | 2021-11-25 14:52 | DI.US.S_ITS ---
LIMITED ULTRASOUND OF RIGHT BREAST: 11/25/2021 CLINICAL: 6 month follow-up of cyst within right breast. Comparison is made to exams dated: 05/22/2021 ultrasound, 05/22/2021 mammogram, and 04/26/2021 mammogram - [facility]. Color flow and real-time ultrasound of the right breast 8 o'clock region were performed. Naik scale images of the real-time examination were reviewed. There is a 0.6 cm x 0.5 cm x 0.3 cm oval cyst with a septated internal wall in the right breast at 8 o'clock middle depth 4 cm from the nipple. This oval cyst is hypoechoic. Color flow imaging demonstrates that there is no vascularity present. IMPRESSION: PROBABLY BENIGN The 0.6 cm complicated cyst in the right breast is probably benign. A follow-up mammogram and an ultrasound in 6 months is recommended to demonstrate stability. Patient will be due for mammogram at that time. Exam findings were conveyed to the patient. This exam was interpreted at Station ID: [id number]. Electronically Signed By: Eligio Lim M.D. slc/:11/25/2021 15:55:13 letter sent: Followup Recommended Ultrasound BI-RADS: 3 Probably benign
== END ==
PROVIDERS: PCP Nurse Practitioner Family; Referring Provider Nurse Practitioner Family; Visit Provider Nurse Practitioner Family
DX: R92.8 Other abnormal and inconclusive findings on diagnostic imaging of breast (principal); N60.01 Solitary cyst of right breast
CPT/HCPCS: 76642

== ENCOUNTER → 2022-06-29 09:07 | Outpatient (CLI) | payer OTHER, SELFPAY ==
--- NOTE | 2022-06-29 09:12 | DI.US.S_ITS ---
ULTRASOUND OF RIGHT BREAST: 06/29/2022 CLINICAL: Patient returns for a 6 month follow up of the right breast. Comparison is made to exams dated: 06/29/2022 mammogram, 11/25/2021 ultrasound, 05/22/2021 ultrasound, and 05/22/2021 mammogram - [facility]. Doppler ultrasound of the right breast was performed. Naik scale images of the real-time examination were reviewed. There is a benign oval cyst in the right breast at 8 o'clock anterior depth. This abnormality is decreased in size. IMPRESSION: BENIGN There is no sonographic evidence of malignancy. The oval cyst in the right breast is smaller and benign. Return to annual mammogram screening schedule is recommended. This exam was interpreted at Station ID: [id number]. Electronically Signed By: Bello Naranjo M.D. acr/:06/29/2022 10:15:03 copy to: RIC[facility] WESTBROOK letter sent: Normal Exam Ultrasound BI-RADS: 2 Benign
--- NOTE | 2022-06-29 09:12 | DI.MG.S_ITS ---
BILATERAL DIGITAL DIAGNOSTIC MAMMOGRAM 3D/2D SHORT-TERM FOLLOW-UP: 06/29/2022 CLINICAL: Short term follow up of the right breast, due for bilateral imaging. Comparison is made to exams dated: 05/22/2021 mammogram, 04/26/2021 mammogram, and 04/05/2020 mammogram - [facility]. There are scattered areas of fibroglandular density in both breasts (category b / 25%-50% glandular tissue). There is a focal asymmetry in the right breast at 7 o'clock middle depth. This is less prominent. No other significant masses, calcifications, or other findings are seen in either breast. IMPRESSION: INCOMPLETE: NEEDS ADDITIONAL IMAGING EVALUATION The focal asymmetry in the right breast is indeterminate. An ultrasound is recommended. Based on the Tyrer Cuzick model (a risk assessment model) the patient's lifetime risk is 10.4% and her 10 year risk is 2.2%. According to the ACR, ACS, and NCCN guidelines, an annual breast MRI exam along with mammogram is recommended if the patient's lifetime risk is 20% or greater. This exam was interpreted at Station ID: [id number]. NOTE: For mammograms, a report in lay terms will be sent to the patient. Approximately 15% of breast malignancies will not be visualized mammographically. In the management of a palpable breast mass, a negative mammogram must not discourage biopsy of a clinically suspicious lesion. Electronically Signed By: Bello Naranjo M.D. acr/:06/29/2022 10:02:15 ACR BI-RADS Category 0: Incomplete 3340F
[2022-06-29 11:45] LABS: Cholesterol 192 mg/dL (140-199); HDL Cholesterol 84 mg/dL (40-60); LDL Cholesterol Calculated 97 mg/dL (<100); Triglycerides 56 mg/dL (35-150)
== END ==
PROVIDERS: PCP Nurse Practitioner Family; Referring Provider Nurse Practitioner Family; Visit Provider Nurse Practitioner Family
DX: R92.8 Other abnormal and inconclusive findings on diagnostic imaging of breast (principal); N60.01 Solitary cyst of right breast; R63.5 Abnormal weight gain; Z13.220 Encounter for screening for lipoid disorders
CPT/HCPCS: 36415; 76642; 77066; 80061; G0279

== ENCOUNTER → 2022-12-09 10:43 | Outpatient (CLI) | payer OTHER, SELFPAY ==
[2022-12-09 11:53] LABS: Add Manual Diff / Slide Review NO; Basophils Absolute Auto 0 /uL (0-100); Basophils Percent Auto 0.9 % (0-2); Eosinophils Absolute Auto 100 /uL (0-450); Eosinophils Percent Auto 1.6 % (2-4); Hematocrit 37.5 % (36-46); Hemoglobin 12.5 g/dL (12.0-16.0); Lymphocytes Absolute Auto 1400 /uL (1100-4500); Lymphocytes Percent Auto 28.8 % (25-40); Mean Corpuscular HGB Conc 33.4 % (30-36); Mean Corpuscular Hemoglobin 28.9 PG (26-34); Mean Corpuscular Volume 86.6 fL (80-100); Monocytes Absolute Auto 300 /uL (0-900); Monocytes Percent Auto 5.6 % (3-14); Neutrophils Absolute Auto 3100 /uL (1500-7000); Neutrophils Percent Auto 63.1 % (50-75); Platelet Count 285 X10^3/uL (150-400); Red Blood Cell Count 4.33 X10^6/uL (4.0-5.2); Red Cell Distribution Width 14.6 % (11.6-14.8); White Blood Cell Count 4.9 X10^3/uL (4.5-11.0)
[2022-12-09 12:12] LABS: Alanine Aminotransferase 17 IU/L (<35); Albumin 4.1 g/dL (3.5-5.0); Albumin Globulin Ratio 1.5 (1.0-2.8); Alkaline Phosphatase 59 U/L (38-126); Aspartate Aminotransferase 25 IU/L (14-36); BUN Creatinine Ratio 20.8 (6-22); Bilirubin Total 0.9 mg/dL (0.2-1.3); Blood Urea Nitrogen 16 mg/dL (7-17); Calcium 8.4 mg/dL (8.4-10.2); Carbon Dioxide 27 mmol/L (22-32); Chloride 104 mmol/L (98-107); Cholesterol 177 mg/dL (140-199); Estimated Glomerular Filt Rate > 60 mL/min (>60); Globulin 2.7 g/dL (1.7-4.1); Glucose 81 mg/dL (70-100); HDL Cholesterol 77 mg/dL (40-60); HEMOLYSIS < 15 (0-50); LDL Cholesterol Calculated 91 mg/dL (<100); Potassium 4.1 mmol/L (3.4-5.1); Sodium 137 mmol/L (137-145); Total Protein 6.8 g/dL (6.3-8.2); Triglycerides 45 mg/dL (35-150)
[2022-12-09 12:29] LABS: Free T4, Direct Thyroxine 1.07 ng/dL (0.78-2.19)
[2022-12-09 12:43] LABS: Thyroid Stimulating Hormone 1.34 uIU/mL (0.47-4.68)
[2022-12-09 13:33] LABS: HIV 1 & 2 Ab/Ag 4th Gen Combo NEGATIVE (NEGATIVE); Hep C Virus Ab w/Reflex Quant NEGATIVE s/c (NEGATIVE)
== END ==
PROVIDERS: PCP Nurse Practitioner; Referring Provider Nurse Practitioner; Visit Provider Nurse Practitioner
DX: Z00.00 Encounter for general adult medical examination without abnormal findings (principal); Z11.59 Encounter for screening for other viral diseases; Z11.4 Encounter for screening for human immunodeficiency virus [HIV]
CPT/HCPCS: 36415; 80053; 80061; 84439; 84443; 84481; 85025; 86803; 87389

== ENCOUNTER → 2023-05-14 19:21 | Outpatient (CLI) | payer OTHER, SELFPAY ==
[2023-05-14 20:11] LABS: Influenza A - CEPHEID Flu A NEGATIVE (NEGATIVE); Influenza B - CEPHEID Flu B NEGATIVE (NEGATIVE); Respiratory Syncytial Virus Negative (Negative)
[2023-05-14 20:14] LABS: COVID-19 CEPHEID 4-PLEX PCR Negative (Negative)
== END ==
PROVIDERS: PCP Nurse Practitioner; Visit Provider Physician Assistant
DX: R05.1 Acute cough (principal)
CPT/HCPCS: 0241U

== ENCOUNTER → 2023-05-14 20:00 | Outpatient (CLI) | payer OTHER, SELFPAY ==
--- NOTE | 2023-05-14 20:03 | DI.RAD.S_ITS ---
PROCEDURE: XR CHEST 2V INDICATIONS: Cough and fever x 1 week TECHNIQUE: 2 views of the chest were acquired. COMPARISON: [facility], CR, XR CHEST 1V, 03/31/2020, 13:56. FINDINGS: Surgical changes and devices: None. Lungs and pleura: Lungs are clear. No pleural effusions or pneumothorax. Mediastinum: Mediastinal contours are normal. Heart size is normal. Bones and chest wall: No suspicious bony abnormalities. Soft tissues appear unremarkable. IMPRESSION: No acute cardiopulmonary abnormality is seen. Dictated by: Georgette Todd M.D. on 05/15/2023 at 20:00 Approved by: Georgette Todd M.D. on 05/15/2023 at 20:01
== END ==
PROVIDERS: PCP Nurse Practitioner; Visit Provider Physician Assistant
DX: R05.1 Acute cough (principal)
CPT/HCPCS: 0241U; 71046

== ENCOUNTER → 2023-12-10 12:00 | Outpatient (CLI) | payer OTHER, SELFPAY ==
--- NOTE | 2023-12-10 12:01 | DI.MG.S_ITS ---
BILATERAL DIGITAL SCREENING MAMMOGRAM 3D/2D WITH CAD: 12/10/2023 CLINICAL: Routine screening. Comparison is made to exams dated: 06/29/2022 mammogram, 04/26/2021 mammogram, 04/05/2020 mammogram - [facility], and 04/04/2018 mammogram - [facility]. There are scattered areas of fibroglandular density in both breasts (category b / 25%-50% glandular tissue). Current study was also evaluated with a Computer Aided Detection (CAD) system. No significant masses, calcifications, or other findings are seen in either breast. There has been no significant interval change. IMPRESSION: NEGATIVE There is no mammographic evidence of malignancy. A 1 year screening mammogram is recommended. Based on the Tyrer Cuzick model (a risk assessment model) the patient's lifetime risk is 10.3% and her 10 year risk is 2.3%. According to the ACR, ACS, and NCCN guidelines, an annual breast MRI exam along with mammogram is recommended if the patient's lifetime risk is 20% or greater. This exam was interpreted at Station ID: [id number]. NOTE: For mammograms, a report in lay terms will be sent to the patient. Approximately 15% of breast malignancies will not be visualized mammographically. In the management of a palpable breast mass, a negative mammogram must not discourage biopsy of a clinically suspicious lesion. Electronically Signed By: Eligio flores/fernando:12/10/2023 13:18:36 copy to: [facility] WESTBROOK letter sent: Normal Exam ACR BI-RADS Category 1: Negative 3341F
== END ==
PROVIDERS: PCP Nurse Practitioner; Referring Provider Nurse Practitioner; Visit Provider Nurse Practitioner
DX: Z12.31 Encounter for screening mammogram for malignant neoplasm of breast (principal); R92.323 Mammographic fibroglandular density, bilateral breasts
CPT/HCPCS: 77063; 77067

== ENCOUNTER → 2024-01-11 16:35 | Outpatient (CLI) | payer OTHER, SELFPAY ==
[2024-01-18 11:11] LABS: Percent Free Testosterone 1.94 % (0.50-2.80); Testosterone Free 0.37 ng/dL (0.10-0.85); Testosterone Total 19.3 ng/dL (.)
== END ==
PROVIDERS: PCP Nurse Practitioner; Referring Provider Nurse Practitioner; Visit Provider Nurse Practitioner
DX: F41.1 Generalized anxiety disorder (principal); R68.82 Decreased libido
CPT/HCPCS: 36415; 84402; 84403; 90853

== ENCOUNTER → 2024-05-04 14:37 | Outpatient (CLI) | payer OTHER, SELFPAY ==
[2024-05-04 16:55] LABS: Hematocrit 43.4 % (36-46); Hemoglobin 14.6 g/dL (12.0-16.0); Mean Corpuscular HGB Conc 33.6 % (30-36); Mean Corpuscular Hemoglobin 31.8 PG (26-34); Mean Corpuscular Volume 94.7 fL (80-100); Platelet Count 306 X10^3/uL (150-400); Red Blood Cell Count 4.58 X10^6/uL (4.0-5.2); Red Cell Distribution Width 13.9 % (11.6-14.8); White Blood Cell Count 6.2 X10^3/uL (4.5-11.0)
[2024-05-04 17:36] LABS: Blood Urea Nitrogen 12 mg/dL (7-17); C-Reactive Protein Quant 0.6 mg/dL (<1.0); Calcium 9.1 mg/dL (8.4-10.2); Carbon Dioxide 27 mmol/L (22-32); Chloride 103 mmol/L (98-107); Cholesterol 202 mg/dL (140-199); Estimated Glomerular Filt Rate > 60 mL/min (>60); Glucose 76 mg/dL (70-100); HDL Cholesterol 97 mg/dL (40-60); HEMOLYSIS < 15 (0-50); LDL Cholesterol Calculated 92 mg/dL (<100); Potassium 4.3 mmol/L (3.4-5.1); Sodium 136 mmol/L (137-145); Triglycerides 67 mg/dL (35-150)
[2024-05-04 17:50] LABS: Erythrocyte Sedimentation Rate 7 MM/HR (0-20)
[2024-05-04 18:03] LABS: TSH w/ Reflex to FT4 1.47 uIU/mL (0.47-4.68)
== END ==
PROVIDERS: PCP Nurse Practitioner Family; Referring Provider Nurse Practitioner Family; Visit Provider Nurse Practitioner Family
DX: E78.5 Hyperlipidemia, unspecified (principal); H53.9 Unspecified visual disturbance; Z91.89 Other specified personal risk factors, not elsewhere classified; Z79.890 Hormone replacement therapy
CPT/HCPCS: 36415; 80048; 80061; 84443; 85027; 85651; 86140

== ENCOUNTER → 2025-01-18 08:20 | Outpatient (CLI) | payer OTHER, SELFPAY ==
--- NOTE | 2025-01-18 08:21 | DI.MG.S_ITS ---
MM screening mammo BI: 01/18/2025. BI-RADS: 0 CLINICAL: 49-year old female for bilateral screening mammogram. Tyrer-Cuzick lifetime risk of 8.3%. No personal or first-degree family history of breast cancer. PRIOR EXAMS 12/10/2023, 06/29/2022, 11/25/2021, 05/22/2021. MAMMOGRAPHY TECHNIQUE: 2D and 3D (tomosynthesis) digital mammographic views obtained, with additional images as needed for full coverage. Current study was also evaluated with a Computer Aided Detection (CAD) system. DENSITY B. There are scattered areas of fibroglandular density. MAMMOGRAPHY FINDINGS Right: No suspicious mass, asymmetry, microcalcification, or other abnormality seen. Left: Inner Central, Anterior depth: Focal asymmetry needing additional imaging evaluation. IMPRESSION: Right * No evidence of malignancy. Left (Asymmetry): Inner Central, Anterior depth * Incomplete - focal asymmetry needing additional imaging evaluation. RECOMMENDATIONS Left: Inner Central, Anterior depth * Further evaluation with diagnostic mammography and diagnostic ultrasound. Ultrasound to be performed only if needed. OVERALL ASSESSMENT CATEGORY BI-RADS-0: Incomplete - Need Additional Imaging Evaluation. ELECTRONICALLY SIGNED: Jaquelin Gruber M.D. on 01/19/2025 at 11:30:53 PM PT Interpreting Station ID: [id number]
== END ==
LOC: MAMMO 08:21
PROVIDERS: PCP Nurse Practitioner Family; Referring Provider Nurse Practitioner Family; Visit Provider Nurse Practitioner Family
DX: Z12.31 Encounter for screening mammogram for malignant neoplasm of breast (principal)
CPT/HCPCS: 77063; 77067

== ENCOUNTER → 2025-01-26 12:12 | Outpatient (CLI) | payer OTHER, SELFPAY ==
--- NOTE | 2025-01-26 12:12 | DI.MG.S_ITS ---
MM diagnostic mammo unilat LT, US breast LT limited: 01/26/2025 BI-RADS: 2 CLINICAL: 49-year old female for left diagnostic mammogram and left diagnostic breast ultrasound that is a recall from screening on 01/18/2025. Tyrer-Cuzick lifetime risk of 8.3%. No personal or first-degree family history of breast cancer. PRIOR EXAMS 01/18/2025, 12/10/2023, 06/29/2022, 11/25/2021, 05/22/2021, 04/26/2021, 04/05/2020. MAMMOGRAPHY TECHNIQUE: 2D and 3D (tomosynthesis) digital mammographic views obtained, with additional images as needed for full coverage. Current study was also evaluated with a Computer Aided Detection (CAD) system. ULTRASOUND TECHNIQUE TARGETED Left Breast Ultrasound: Real-time ultrasound exam was performed focused to area of clinical and/or imaging concern. Real-time madrid scale and color doppler imaging of the area of clinical interest was performed with image documentation. DENSITY Left: B. There are scattered areas of fibroglandular density. MAMMOGRAPHY FINDINGS Left (finding-1): Inner at 9:00, Anterior depth, measuring 0.6cm: Correlating with findings on screening mammogram there is a circumscribed, oval, low-density mass present. ULTRASOUND FINDINGS Left (finding-1): Inner at 9:00, 5 cm from nipple, measuring 0.6 x 0.3 x 0.4 cm: Correlating with findings on mammogram, there is a cyst with thin septations. IMPRESSION: Left * No evidence of malignancy with benign findings. RECOMMENDATIONS Bilateral * Annual screening mammography. COMMENTS: Findings and recommendations were conveyed to the patient during today's evaluation. OVERALL ASSESSMENT CATEGORY BI-RADS-2: Benign. The [employer] recommends annual screening mammography beginning at age 40 for women with average risk of breast cancer. ELECTRONICALLY SIGNED: Jaquelin Gruber M.D. on 01/26/2025 at 01:01:42 PM PT Interpreting Station ID: [id number]
== END ==
LOC: MAMMO 12:12
PROVIDERS: PCP Nurse Practitioner Family; Referring Provider Nurse Practitioner Family; Visit Provider Nurse Practitioner Family
DX: R92.8 Other abnormal and inconclusive findings on diagnostic imaging of breast (principal)
CPT/HCPCS: 76642; 77065; G0279

== ENCOUNTER → 2025-04-18 19:23 | Outpatient (CLI) | payer OTHER, SELFPAY ==
--- NOTE | 2025-04-18 19:24 | DI.MRI.S_ITS ---
PROCEDURE: MR HEAD/BRAIN WO/W CON INDICATIONS: daily headaches w/ photosensitivity, nausea, vomiting TECHNIQUE: Noncontrast axial T1 spin echo, axial T2 fast spin echo, sagittal and axial FLAIR, coronal T2 fast spin echo, axial gradient echo, axial diffusion and ADC through the brain. After the administration of contrast, axial and coronal and sagittal 3D VIBE or T1 spin echo with fat saturation through the brain. COMPARISON: None. FINDINGS: Image quality: Excellent. CSF Spaces: Basal cisterns are patent. No extra-axial fluid collections. Ventricles are normal in size and shape. Brain: No midline shift. No intracranial bleeds or masses. No abnormal intracranial enhancement. The brainstem appears normal. Diffusion-weighted images demonstrate no acute infarct. No chronic ischemic insults. Normal intravascular flow voids are present. Skull and face: Calvarial marrow is normal in signal. Orbits appear normal. Sinuses: Sinuses and mastoids appear clear. IMPRESSION: No acute intracranial abnormalities or abnormal intracranial enhancement. No cause for patient's symptoms is identified. Dictated by: Kasi Mann M.D. on 04/19/2025 at 9:14 Approved by: Kasi Mann M.D. on 04/19/2025 at 9:25
== END ==
PROVIDERS: PCP Nurse Practitioner Family; Referring Provider Nurse Practitioner Family; Visit Provider Nurse Practitioner Family
DX: H53.9 Unspecified visual disturbance (principal); G43.909 Migraine, unspecified, not intractable, without status migrainosus
CPT/HCPCS: 70553; A9579